=== PATIENT | female | born 1955 | race Caucasian/White ===

== ENCOUNTER 2016-10-19 20:47 | Emergency (ER) ==
[2016-10-19 20:53] VITALS: BP 124/76; TEMP 99.3; BMI 23.7
[2016-10-19] MEDS ORDERED: SODIUM CHLORIDE 1,000 ML IV STA (21:01)
[2016-10-19] MEDS ORDERED: LEVAQUIN 500 MG in PREMIX 100 ML D5W 1 BAG IV STA (21:02)
[2016-10-19] MEDS ORDERED: SOLU-MEDROL 40 MG IVP STA (21:03)
[2016-10-19] MEDS ORDERED: DUONEB NEB STA (21:05)
[2016-10-19 21:17] LABS: BASOPHILS # (AUTO) 0.1 K/uL (0-0.2); BASOPHILS % (AUTO) 0.6 % (0.0-3.0); EOSINOPHILS # (AUTO) 0.3 K/ul (0.0-0.7); EOSINOPHILS % (AUTO) 2.1 % (0.0-7.0); HEMATOCRIT 40.7 % (37.0-47.0); HEMOGLOBIN 14.2 g/dl (12.0-16.0); IMMATURE GRANULOCYTE % (AUTO) 0.4 % (0.0-5.0); LYMPHOCYTES # (AUTO) 3.2 K/uL (0.60-3.4); MEAN CORPUSCULAR HEMOGLOBIN 29.2 pg (27.0-31.0); MEAN CORPUSCULAR HGB CONC 34.9 (31.8-35.4); MEAN CORPUSCULAR VOLUME 83.7 fl (81.0-99.0); MONOCYTES # (AUTO) 0.8 K/uL (0.4-2.0); MONOCYTES % (AUTO) 5.9 (0-10); NEUTROPHILS # (AUTO) 9.6 K/ul (2.0-6.9); PLATELET COUNT 347 10^3/uL (140-440); RED BLOOD COUNT 4.86 10^6/ul (4.20-5.40); WHITE BLOOD COUNT 14.07 K/ul (4.6-10.2)
[2016-10-19] MEDS ORDERED: LEVAQUIN 100 ML IV ONE (21:20)
[2016-10-19 21:36] LABS: ALBUMIN 3.4 g/dL (3.4-5.0); ALBUMIN/GLOBULIN RATIO 0.94; ANION GAP 13.9; BILIRUBIN,TOTAL 0.73 mg/dL (0.00-1.20); BUN/CREATININE RATIO 10.12; CALCIUM 9.4 mg/dL (8.2-10.2); CREATININE 0.79 mg/dL (0.60-1.30); POTASSIUM 2.9 mmol/L (3.5-5.10)
[2016-10-19 21:40] LABS: ABG PCO2 40.1 mmHg (35-45); ABG PH 7.427 (7.35-7.45)
[2016-10-19 21:41] LABS: ABG BASE EXCESS 2 (-2.0-2.0); ABG HCO3 26.4 (22.0-26.0); ABG TCO2 28 (22.0-28.0)
--- NOTE | 2016-10-19 22:22 | CT ---
EXAM: CT of the chest without contrast. HISTORY: Cough. PROCEDURE: Contiguous axial CT images of the chest without contrast with coronal and sagittal refor mats. FINDINGS: The heart is within normal limits in size. The thoracic aorta is within normal limits in diameter. There are calcified hilar lymph nodes. There is minimal right middle lobe and lingular at electasis. There are mild emphysematous changes throughout both lungs. There are two nodules in the lateral right mid lung measuring up to 0.3 cm with minimal adjacent scarring. There are degenerati ve changes in the spine. There are anterior wedging deformities at multiple levels of the spine whic h appear chronic. The adrenal glands and visualized portion of the liver are normal in appearance. Impression: Minimal right middle lobe and lingular atelectasis. Two right lung nodules measuring up to 0.3 cm as described. Recommend follow-up CT in 12 months to confirm stability. Mild chronic obstructive pulmonary disease. Anterior wedging deformities at multiple levels of the spine which appear chronic.
--- NOTE | 2016-10-19 22:24 | CT ---
EXAM: CT of the sinuses without contrast. HISTORY: Sinus congestion. PROCEDURE: Contiguous axial CT images of the paranasal sinuses without contrast with coronal and sa gittal reformats. FINDINGS: The frontal sinuses are well-aerated and normal in appearance. There is minimal mucosal thickening in the ethmoid air cells. There is minimal mucosal thickening in the right side of the s phenoid sinus. The left maxillary sinuse is well-aerated and normal in appearance. The left ostiome atal complex is normal in appearance. There is minimal mucosal thickening in the right maxillary si nus. There is mucosal thickening narrowing the infundibulum of the right ostiomeatal complex. Ther e is a left gabrielle bullosa. The other nasal turbinates are normal in appearance. There is moderate bowing of the nasal septum to the left with a left septal spur. The orbits are normal in appearanc e. Impression: Paranasal sinusitis as described. Left gabrielle bullosa.
--- NOTE | 2016-10-19 22:25 | CT ---
EXAM: CT soft tissue neck without intravenous contrast 10/19/2016. Sagittal and coronal reformatte d images obtained HISTORY: Sore throat COMPARISON: None. FINDINGS: The nasopharynx and oropharynx show no acute abnormality. The parapharyngeal soft tissue s appear within normal limits. The retropharyngeal soft tissues appear within normal limits. The epiglottis appears within normal limits. The larynx shows no acute abnormality. The parotid and submandibular glands show no acute process. The thyroid gland shows no acute abnorm ality. The visualized portion of the trachea is unremarkable. Emphysematous changes of pulmonary apices. IMPRESSION: No acute inflammatory process identified within the soft tissues of the neck within the limitation of a noncontrast enhanced examination.
--- NOTE | 2016-10-19 22:52 | ED.PDOC ---
General ED Provider: Dr. ALISSA PEREZ-ER Chief Complaint: Sore Throat Stated Complaint: my sinuses are clogged up Time Seen by Physician: 20:50 Mode of Arrival: Walk-In Information Source: Patient Exam Limitations: No limitations Nursing and Triage Documentation Reviewed and Agree: Yes EENT Complaint Exam - Nasal Complaint/Exam Onset/Duration: 2 days Symptoms Are: Still present Timing: Constant Initial Severity: Mild Current Severity: Moderate Location: Bilateral Aggravating: Reports: URI Alleviating: Reports: None Associated Signs and Symptoms: Reports: Nasal congestion, Sinus pain, Nasal discharge. Denies: Bruising, Hematuria, Hematochezia, Foreign body, Abnormal coags Related History: Reports: Similar episode Foreign Body Present: No Septal Hematoma: No Differential Diagnoses: Sinusitis Review of Systems - Review Of Systems Constitutional: Reports: No symptoms Eyes: Reports: No symptoms Ears, Nose, Mouth, Throat: Reports: Nose discharge Respiratory: Reports: Cough Cardiac: Reports: No symptoms GI: Reports: No symptoms : Reports: No symptoms Musculoskeletal: Reports: No symptoms Skin: Reports: No symptoms Neurological: Reports: No symptoms Endocrine: Reports: No symptoms Hematologic/Lymphatic: Reports: No symptoms All Other Systems: Reviewed and Negative Past Medical History - Past Medical History Previously Healthy: Yes Endocrine: Reports: Unknown Cardiovascular: Reports: Unknown Respiratory: Reports: COPD Hematological: Reports: Unknown Gastrointestinal: Reports: Unknown Genitourinary: Reports: Unknown Neuro/Psych: Reports: Unknown Musculoskeletal: Reports: Unknown Cancer: Reports: Unknown Last Menstrual Period: TOTAL HYSTERECTOMY - Surgical History General Surgical History: Reports: Unknown - Family History Family History: Reports: Unknown - Social History Smoking Status: Former smoker Hx Substance Use: No Alcohol Screening: None Lives: With family Physical Exam - Physical Exam Appearance: Well-appearing, No pain distress, Well-nourished Eyes: NIKO, EOMI, Conjunctiva clear ENT: Rhinorrhea Neck: Supple Respiratory: Rhonchi Cardiovascular: RRR, Pulses normal, No rub, No murmur GI/: Soft, Nontender, No masses, Bowel sounds normal, No Organomegaly Musculoskeletal: Normal strength, ROM intact, No edema, No calf tenderness Skin: Warm, Dry, Normal color Neurological: Sensation intact Psychiatric: Affect appropriate, Mood appropriate Interpretation - Radiology Interpretation Radiology Interpretation By: Radiologist Radiology Results: Positive Exam Interpreted: CT Scan - EKG Interpretation Time of EKG #1: 22:51 Rate: Normal Rhythm: Sinus Ectopy: None [place]: NL ST Segment: Normal Interpretation: nasr Re-Evaluation - Re-Evaluation Time of Re-Evaluation: 22:51 Status: Improved (oxygen sat 91%--no resp distress or use of accessory muscles) Vital Signs Stable: Yes Pain Level: 0 Appearance: NAD Lungs: Clear Skin: Warm and Dry Neuro: Alert and Oriented X3 CV: RRR Critical Care Note - Critical Care Note Total Time (mins): 0 Course - Course Hematology/Chemistry: 10/19/16 21:10 10/19/16 21:10 Orders, Labs, Meds: Lab Review 10/19/16 10/19/16 10/19/16 21:01 21:10 21:15 WBC 14.07 H RBC 4.86 Hgb 14.2 Hct 40.7 MCV 83.7 MCH 29.2 MCHC 34.9 RDW Coeff of Hyun 13.7 Plt Count 347 Immature Gran % (Auto) 0.4 Neut % (Auto) 68.0 Lymph % (Auto) 23.0 [place] % (Auto) 5.9 Eos % (Auto) 2.1 Baso % (Auto) 0.6 Immature Gran # (Auto) 0.1 Neut # 9.6 H Lymph # 3.2 [place] # 0.8 Eos # 0.3 Baso # 0.1 D-Dimer (Manual) 461.29 Puncture Site Rradial O2 Saturation 87.0 L ABG pH 7.427 ABG pCO2 40.1 ABG pO2 51.0 L* ABG HCO3 26.4 H ABG Total CO2 28 ABG Base Excess 2 Sunday Test + FiO2 % 21.0 Sodium 139 Potassium 2.9 L Chloride 100 Carbon Dioxide 28 Anion Gap 13.9 BUN 8 Creatinine 0.79 Estimated GFR (MDRD) 74.00 BUN/Creatinine Ratio 10.12 Glucose 148 H Calcium 9.4 Total Bilirubin 0.73 AST 10 L ALT 7 L Alkaline Phosphatase 118 B-Natriuretic Peptide 29 Total Protein 7.0 Albumin 3.4 Globulin 3.6 Albumin/Globulin Ratio 0.94 Orders Category Date Time Status ABG DRAW REQUEST Stat CARDIO 10/19/16 21:01 Completed EKG-(ED ONLY) Stat CARDIO 10/19/16 21:01 Completed NEBULIZER TREATMENT Stat CARDIO 10/19/16 21:05 Completed ED IV/MEDIPORT/POWERPORT .ONCE EMERGENCY 10/19/16 21:01 Active ABG Stat LAB 10/19/16 21:01 Completed BLOOD CULTURE Stat LAB 10/19/16 21:10 Received BNP [B-TYPE NATRIURETIC PEPTIDE] Stat LAB 10/19/16 21:15 Completed CBC W/ AUTO DIFF Stat LAB 10/19/16 21:10 Completed COMPREHENSIVE METABOLIC PANEL Stat LAB 10/19/16 21:10 Completed D-DIMER Stat LAB 10/19/16 21:10 Completed MOLECULAR GROUP A STREP Stat LAB 10/19/16 21:21 Results STREP SCREEN Stat LAB 10/19/16 21:21 Results 0.9 % Sodium Chloride [Saline Flush] MEDS 10/19/16 21:01 Ordered 1 syr IVF PRN PRN Ipratropium/Albuterol Neb [Duoneb] MEDS 10/19/16 21:05 Discontinued 1 vial NEB ONCE STA Levofloxacin/D5w [Levaquin] 100 ml MEDS 10/19/16 21:20 Discontinued IV .STK-MED Levofloxacin/D5w [Levaquin] 500 mg MEDS 10/19/16 21:02 Discontinued Premix 100 ml D5w 1 bag IV ONCE Methylprednisolone Sod Succ/Pf [Solu-Medrol 40 mg] MEDS 10/19/16 21:03 Discontinued 40 mg IVP ONCE STA Sodium Chloride 0.9% [Sodium Chloride] 1,000 ml MEDS 10/19/16 21:01 Active IV 100 mls/hr CT CHEST W/O CONTRAST Stat RADS 10/19/16 21:[address] SINUSES W/O CONTRAST Stat RADS 10/19/16 21:[address] SOFT TISSUE NECK W/O CONTR Stat RADS 10/19/16 21:02 Completed Medications Generic Name Dose Route Start Last Admin Trade Name Freq PRN Reason Stop Dose Admin Sodium Chloride 1,000 mls @ 100 mls/hr 10/19/16 21:01 10/19/16 21:15 Sodium Chloride IV 10/20/16 07:00 100 mls/hr .Q10H STA Administration Sodium Chloride 1 syr 10/19/16 21:01 10/19/16 21:09 Saline Flush IVF 1 syr PRN PRN Administration To flush IV Discontinued Medications Generic Name Dose Route Start Last Admin Trade Name Freq PRN Reason Stop Dose Admin Albuterol/Ipratropium 1 vial 10/19/16 21:05 10/19/16 21:23 Duoneb NEB 10/19/16 21:06 1 vial ONCE STA Administration Levofloxacin/Dextrose 500 mg/ 100 mls @ 100 mls/hr 10/19/16 21:02 10/19/16 22 :11 Dextrose IV 10/19/16 22:01 100 mls/hr ONCE STA Administration Methylprednisolone Sodium Succinate 40 mg 10/19/16 21:03 10/19/16 21:15 Solu-Medrol 40 Mg IVP 10/19/16 21:04 40 mg ONCE STA Administration Vital Signs: Temp Pulse Resp BP Pulse Ox 10/19/16 20:48 99.3 F 88 22 124/76 97 Departure - Departure Time of Disposition: 22:52 Disposition: HOME SELF-CARE Discharge Problem: Sinusitis Qualifiers: Sinusitis location: pansinusitis Chronicity: acute Recurrence: non-recurrent Qualifier Code: (J01.40) Acute pansinusitis, unspecified Instructions: COPD (Chronic Obstructive Pulmonary Disease) (ED), Rhinosinusitis (ED), Pulmonary Nodules (ED) Condition: Good Pt referred to PMD for follow-up: Yes Additional Instructions: medrol dose pack=--levaquin 500mg q daily #9--f/u with pcp--get potassium repeated--talk to your pcp about lung nodules Allergies/Adverse Reactions: Allergies codeine Adverse Reaction (Verified 10/19/16 20:53) naproxen Adverse Reaction (Verified 10/19/16 20:53) Penicillins Adverse Reaction (Verified 10/19/16 20:53) Home Medications: Ambulatory Orders 1 [Unobtainable] 10/19/16 Estradiol 1 mg PO DAILY 10/19/16 Disposition Discussed With: Patient
[2016-10-19] MEDS ORDERED: K-DUR PO STA (22:55)
== END 2016-10-19 23:40 | disposition home or self-care (01) ==
LOC: ED 20:47
DX: J01.40 Acute pansinusitis, unspecified (principal); J02.9 Acute pharyngitis, unspecified; J44.9 Chronic obstructive pulmonary disease, unspecified; R91.1 Solitary pulmonary nodule
CPT/HCPCS: 36415; 80053; 82803; 83880; 85025; 85379; 87040; 87651; 87880; 93005; 93010; 94640; 96365; 96375; 99283